=== PATIENT | female | born 1995 | race Hispanic/Latino ===

== ENCOUNTER 2018-06-18 07:03 | Emergency (ER) | payer BC ==
--- OUTSIDE RECORDS SUMMARY | 2018-06-18 07:06 | XMS REPORT ---
:1995 [facility] Address [address] [place] [address] Dr. Perez [address] [place] [id number] Care Team Providers Name Role Phone Unavailable Unavailable Unavailable Problems This patient has no known problems. Allergies, Adverse Reactions, Alerts This patient has no known allergies or adverse reactions. Medications This patient has no known medications.
[2018-06-18] MEDS ORDERED: CODEINE 30MG/APAP 300MG TAB ONE (07:49)
--- NOTE | 2018-06-18 08:34 | RAD REPORT ---
EXAM DESCRIPTION: RAD - Foot Right 3 View - 06/18/2018 7:33 am CLINICAL HISTORY: PAIN COMPARISON: No comparisons FINDINGS: No fracture or dislocation is seen. Small calcaneal spurs.
--- NOTE | 2018-06-18 08:41 | ER ---
Nurse's Notes [facility] Name: Catherine Carlos Age: 23 yrs Sex: Female : 1995 Arrival Date: 06/18/2018 Time: 07:06 Bed 7 Private MD: out of town, doctor Diagnosis: Other sprain of right foot Presentation: 06/18 07:19 Presenting complaint: Patient states: Complains of right foot pain. 10/10 pain, does pc1 not radiate to any other location. Aggravated by dorsi flexion and extension, circumduction of the right foot. Dorsals pedis pulses 2+. Stated that she did not recall and recent injuries that would have caused her pain, denies falling. Stated that her pain began on the and progressively has gotten worse. Transition of care: patient was not received from another setting of care. Onset of symptoms was June 16, 2018. Risk Assessment: Do you want to hurt yourself or someone else? Patient reports no desire to harm self or others. Initial Sepsis Screen: Does the patient meet any 2 criteria? No. Patient's initial sepsis screen is negative. Does the patient have a suspected source of infection? No. Patient's initial sepsis screen is negative. Care prior to arrival: None. Activity prior to arrival: None. Mechanism of Injury: No Mechanism of Injury. 07:19 Method Of Arrival: Ambulatory pc1 07:19 Acuity: DIANELYS 4 pc1 Triage Assessment: 07:31 General: Appears in no apparent distress. uncomfortable, Behavior is calm, cooperative. pc1 Pain: Complains of pain in right foot Pain does not radiate. Pain currently is 10 out of 10 on a pain scale. Quality of pain is described as tender, Pain began 2-3 days ago. Is Aggravated by increased activity, weight bearing, Noted to be. Musculoskeletal: Tenderness is absent. Injury Description: Pt stated "Did not actively injury foot". 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 - Social history:: Smoking status: Patient/guardian denies using tobacco, never smoked, Patient/guardian denies using alcohol, street drugs. - Ebola Screening: : Patient negative for fever greater than or equal to 101.5 degrees Fahrenheit, and additional compatible Ebola Virus Disease symptoms Patient denies exposure to infectious person Patient denies travel to an Ebola-affected area in the 21 days before illness onset No symptoms or risks identified at this time. Screenin:38 Abuse screen: Denies threats or abuse. Denies injuries from another. Nutritional pc1 screening: No deficits noted. Tuberculosis screening: No symptoms or risk factors identified. Fall Risk None identified. Gait-. Assessment: 07:41 General: See triage tab. pc1 08:48 Reassessment: Patient and/or family updated on plan of care and expected duration. Pain hj level reassessed. Patient is alert, oriented x 3, equal unlabored respirations, skin warm/dry/pink. crutch training done;. Vital Signs: 07:27 BP 125 / 88; Pulse 79; Resp 17; Temp 98.2; Pulse Ox 97% on R/A; pc1 08:47 BP 111 / 56; Pulse 75; Resp 18; Pulse Ox 100% on R/A; hj ED Course: 07:06 Patient arrived in ED. mr 07:07 out of town, doctor is Private Physician. mr 07:14 González Raines, ZION is PHCP. pm1 07:14 Eran Lacey MD is Attending Physician. pm1 07:15 Obdulio Pope, CODY is Primary Nurse. hj 07:26 X-ray completed. Portable x-ray completed in exam room. Patient tolerated procedure jb2 well. 07:27 Triage completed. pc1 07:31 Foot Right 3 View XRAY In Process Unspecified. EDMS 07:35 Arm band placed on right wrist. pc1 07:39 Patient has correct armband on for positive identification. Bed in low position. Call pc1 light in reach. Adult w/ patient. 09:24 No provider procedures requiring assistance completed. Patient did not have IV access hj during this emergency room visit. Administered Medications: 07:36 Drug: Tylenol #3 (300 mg-30 mg) 1 tablet Route: PO; hj 08:36 Follow up: Response: No adverse reaction; Pain is decreased hj Outcome: 08:41 Discharge ordered by . pm1 09:24 Discharged to home ambulatory, with crutches, with family. hj 09:24 Condition: stable 09:24 Discharge instructions given to patient, family, Instructed on discharge instructions, follow up and referral plans. medication usage, crutch walking, Demonstrated understanding of instructions, follow-up care, medications, crutch walking, Prescriptions given X 1. 09:25 Attestation : i agree with assessment and notes of SN Daniel. 09:26 Patient left the ED. Signatures: Dispatcher [employer] EDTN Patricia Silva mr Childs, Jan jb2 Obdulio Pope, RN RN González Mims, EARTHMOVING LABOURER EARTHMOVING LABOURER pm1 González Roblero pc1
--- NOTE | 2018-06-18 08:41 | EDPHYS ---
Physician Documentation [facility] Name: Catherine Carlos Age: 23 yrs Sex: Female : 1995 Arrival Date: 06/18/2018 Time: 07:06 Bed 7 Private MD: out of town, doctor ED Physician Eran Lacey HPI: 06/18 07:37 This 23 yrs old Female presents to ER via Ambulatory with complaints of Right pm1 Foot Pain. 07:37 The patient presents with pain, that is acute. The complaints affect the Lateral aspect pm1 of dorsum of right foot. Context: The problem was sustained at home, resulted from an unknown cause, the patient can partially bear weight, the patient is able to ambulate, with mild difficulty, Problem is a result from a previous injury: No. Onset: The symptoms/episode began/occurred 2 day(s) ago. Modifying factors: The symptoms are alleviated by rest. the symptoms are aggravated by weight bearing, plantar extension and dorsiflexion. Associated signs and symptoms: Pertinent negatives calf tenderness, fever, numbness, rash, swelling, tingling, warmth. Treatment prior to arrival includes: no previous treatment. Severity of symptoms: in the emergency department the symptoms are unchanged. The patient has not experienced similar symptoms in the past. The patient has not recently seen a physician. 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 - Social history:: Smoking status: Patient/guardian denies using tobacco, never smoked, Patient/guardian denies using alcohol, street drugs. - Ebola Screening: : Patient negative for fever greater than or equal to 101.5 degrees Fahrenheit, and additional compatible Ebola Virus Disease symptoms Patient denies exposure to infectious person Patient denies travel to an Ebola-affected area in the 21 days before illness onset No symptoms or risks identified at this time. ROS: 07:37 Constitutional: Negative for fever, chills, and weight loss, Eyes: Negative for injury, pm1 pain, redness, and discharge, ENT: Negative for injury, pain, and discharge, Neck: Negative for injury, pain, and swelling, Cardiovascular: Negative for chest pain, palpitations, and edema, Respiratory: Negative for shortness of breath, cough, wheezing, and pleuritic chest pain, Abdomen/GI: Negative for abdominal pain, nausea, vomiting, diarrhea, and constipation, Back: Negative for injury and pain, : Negative for injury, bleeding, discharge, and swelling. 07:37 Skin: Negative for injury, rash, and discoloration, Neuro: Negative for headache, weakness, numbness, tingling, and seizure. 07:37 MS/extremity: Positive for pain, of the right foot, Negative for injury or acute deformity, deformity, swelling. Exam: 07:37 Constitutional: This is a well developed, well nourished patient who is awake, alert, pm1 and in no acute distress. Head/Face: Normocephalic, atraumatic. Neck: Trachea midline, no thyromegaly or masses palpated, and no cervical lymphadenopathy. Supple, full range of motion without nuchal rigidity, or vertebral point tenderness. No Meningismus. Chest/axilla: Normal chest wall appearance and motion. Nontender with no deformity. No lesions are appreciated. Cardiovascular: Regular rate and rhythm with a normal S1 and S2. No gallops, murmurs, or rubs. Normal PMI, no JVD. No pulse deficits. Respiratory: Lungs have equal breath sounds bilaterally, clear to auscultation and percussion. No rales, rhonchi or wheezes noted. No increased work of breathing, no retractions or nasal flaring. Back: No spinal tenderness. No costovertebral tenderness. Full range of motion. Skin: Warm, dry with normal turgor. Normal color with no rashes, no lesions, and no evidence of cellulitis. 07:37 Musculoskeletal/extremity: Extremities: grossly normal except: noted in the dorsum of right foot, lateral aspect over 4th metatarsal: tenderness, There is no evidence of decreased ROM, deformity, swelling, Circulation is intact in all extremities. 07:37 Neuro: Orientation: is normal, Motor: is normal, moves all fours. Vital Signs: 07:27 BP 125 / 88; Pulse 79; Resp 17; Temp 98.2; Pulse Ox 97% on R/A; pc1 08:47 BP 111 / 56; Pulse 75; Resp 18; Pulse Ox 100% on R/A; hj MDM: 07:14 Patient medically screened. pm1 07:41 Data reviewed: vital signs. Data interpreted: Pulse oximetry: on room air is 97 %. pm1 Interpretation: normal. 08:38 Counseling: I had a detailed discussion with the patient and/or guardian regarding: the pm1 historical points, exam findings, and any diagnostic results supporting the discharge/admit diagnosis, radiology results, the need for outpatient follow up, to return to the emergency department if symptoms worsen or persist or if there are any questions or concerns that arise at home. 06/18 07:17 Order name: Foot Right 3 View XRAY; Complete Time: 08:38 pm1 06/18 08:41 Order name: Crutches; Complete Time: 08:42 pm1 Administered Medications: 07:36 Drug: Tylenol #3 (300 mg-30 mg) 1 tablet Route: PO; 08:36 Follow up: Response: No adverse reaction; Pain is decreased Disposition: 06/19 07:05 Co-signature as Attending Physician, Eran Lacey MD. rn Disposition: 06/18/18 08:41 Discharged to Home. Impression: Other sprain of right foot. - Condition is Stable. - Discharge Instructions: Crutch Use, Foot Sprain. - Prescriptions for Tylenol- Codeine #3 300-30 mg Oral Tablet - take 2 tablets by ORAL route every 6 hours As needed; 20 tablet. - Medication Reconciliation Form, Thank You Letter, Prescription Opioid Use, Family Work Release form. - Follow up: Emergency Department; When: As needed; Reason: Worsening of condition. Follow up: Private Physician; When: 2 - 3 days; Reason: Recheck today's complaints, Continuance of care, Re-evaluation by your physician. - Problem is new. - Symptoms have improved. Signatures: Dispatcher [employer] EDMS Eran Lacey MD MD rn Joaquin, Henry, RN RN hj Marinas, Patrick, ZION CHECK PROCESSOR pm1 González Roblero pc1 Corrections: (The following items were deleted from the chart) 06/18 09:26 08:41 06/18/2018 08:41 Discharged to Home. Impression: Other sprain of right foot. hj Condition is Stable. Forms are Medication Reconciliation Form, Thank You Letter, Antibiotic Education, Prescription Opioid Use. Follow up: Emergency Department; When: As needed; Reason: Worsening of condition. Follow up: Private Physician; When: 2 - 3 days; Reason: Recheck today's complaints, Continuance of care, Re-evaluation by your physician. Problem is new. Symptoms have improved. pm1
== END 2018-06-18 09:26 | disposition home or self-care (01) ==
LOC: ER 07:03
DX: S93.691A Other sprain of right foot, initial encounter (principal); X58.XXXA Exposure to other specified factors, initial encounter; Y93.9 Activity, unspecified; Y92.009 Unspecified place in unspecified non-institutional (private) residence as the place of occurrence of the external cause

== ENCOUNTER 2019-04-28 16:51 | Emergency (ER) | payer BC, OTHER ==
--- OUTSIDE RECORDS SUMMARY | 2019-04-28 16:53 | XMS REPORT ---
:1995 [facility] Address [address] [place] [address] Dr. Garcia[address] [place] [id number] Care Team Providers Name Role Phone Unavailable Unavailable Unavailable Problems This patient has no known problems. Allergies, Adverse Reactions, Alerts This patient has no known allergies or adverse reactions. Medications This patient has no known medications.
[2019-04-28] MEDS ORDERED: ONDANSETRON 4 MG (ODT) TAB ONE (18:02)
[2019-04-28] MEDS ORDERED: ACETAMINOPHEN 500 MG TAB ONE (18:02)
[2019-04-28 18:31] LABS: Urine Blood TRACE (NEG); Urine Glucose NEGATIVE (NEG); Urine Protein NEGATIVE (NEG); Urine Specific Gravity 1.025 (1.005-1.030)
[2019-04-28] MEDS ORDERED: NA CHLORIDE 0.9% 1,000 ML ONE (18:50)
[2019-04-28 18:59] LABS: Absolute Lymphocytes (CBC) 1.9 K/uL (0.7-4.9); Basophils % 0.7 % (0-1.3); Hematocrit 41.5 % (36.0-45.0); Lymphocytes % 31.3 % (15.3-44.8); MPV 9.7 fL (7.6-11.3); RBC Red Blood Cell Count 5.04 M/uL (3.86-4.86)
[2019-04-28 19:20] LABS: ALT/SGPT 33 U/L (12-78); AST/SGOT 13 U/L (15-37); Alkaline Phosphatase 44 U/L (45-117); BUN Blood Urea Nitrogen 14 mg/dL (7-18); Bicarbonate 26 mmol/L (21-32); Bilirubin Direct < 0.1 mg/dL (0-0.2); Bilirubin Total 0.3 mg/dL (0.2-1.0); Glucose Level 90 mg/dL (74-106); Lipase 88 U/L (73-393); Potassium 4.2 mmol/L (3.5-5.1); Protein, Total 7.2 g/dL (6.4-8.2); Sodium Level 139 mmol/L (136-145)
--- NOTE | 2019-04-28 19:49 | EDPHYS ---
Physician Documentation [facility] Name: Catherine Carlos Age: 23 yrs Sex: Female : 1995 Arrival Date: 04/28/2019 Time: 16:57 Bed 23 Private MD: ED Physician Chase Howell HPI: 04/28 18:00 This 23 yrs old Female presents to ER via Ambulatory with complaints of cp Vomiting, Dizziness, Fever, Sore Throat. 18:00 The patient presents to the emergency department with nausea, that is mild, vomiting, cp that is intermittent, 3 times since last night. 18:00 Onset: The symptoms/episode began/occurred last night. Possible causes: unknown. The cp symptoms are aggravated by movement. Associated signs and symptoms: Pertinent positives: fever, headache, sore throat, dizziness, Pertinent negatives: constipation, diarrhea, active vomiting. 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 - Social history:: Smoking status: Patient uses tobacco products, denies chronic smoking, but will smoke occasionally. - Ebola Screening: : Patient negative for fever greater than or equal to 101.5 degrees Fahrenheit, and additional compatible Ebola Virus Disease symptoms Patient denies exposure to infectious person Patient denies travel to an Ebola-affected area in the 21 days before illness onset No symptoms or risks identified at this time. ROS: 18:10 Eyes: Negative for injury, pain, redness, and discharge. cp 18:10 Constitutional: Negative for body aches, fever, poor PO intake. 18:10 ENT: Positive for sore throat, Negative for drainage from ear(s), ear pain, sinus congestion, sinus pain, difficulty swallowing, difficulty handling secretions. 18:10 Neck: Negative for stiffness. 18:10 Cardiovascular: Negative for chest pain, edema, palpitations. 18:10 Respiratory: Negative for cough, shortness of breath, wheezing. 18:10 Abdomen/GI: Positive for nausea, Negative for diarrhea, constipation, active vomiting. 18:10 Back: Negative for pain at rest, pain with movement, radiated pain. 18:10 : Negative for urinary symptoms. 18:10 Skin: Negative for rash. 18:10 Neuro: Positive for dizziness, headache, Negative for altered mental status, numbness, syncope, weakness. 18:10 All other systems are negative. Exam: 18:15 Constitutional: The patient appears in no acute distress, alert, awake, non-toxic, well cp developed, well nourished. 18:15 Head/Face: Normocephalic, atraumatic. cp 18:15 Eyes: Periorbital structures: appear normal, Pupils: equal, round, and reactive to light and accomodation, Extraocular movements: intact throughout, Conjunctiva: normal, no exudate, no injection, Sclera: no appreciated abnormality, Lids and lashes: appear normal, bilaterally. 18:15 ENT: External ear(s): are unremarkable, Ear canal(s): are normal, clear, TM's: bulging, is not appreciated, bilaterally, dullness, bilaterally, erythema, is not appreciated, bilaterally, Nose: is normal, Mouth: Lips: moist, Oral mucosa: pink and intact, moist, Posterior pharynx: is normal, airway is patent, no erythema, no exudate, Voice: is normal. 18:15 Neck: ROM/movement: Meningeal signs: are not present, nuchal rigidity, is not appreciated. 18:15 Chest/axilla: Inspection: normal, Palpation: is normal, no crepitus, no tenderness. 18:15 Cardiovascular: Rate: normal, Rhythm: regular, Heart sounds: murmur, not appreciated, Edema: is not appreciated. 18:15 Respiratory: the patient does not display signs of respiratory distress, Respirations: normal, no use of accessory muscles, no retractions, no splinting, no tachypnea, labored breathing, is not present, Breath sounds: are clear throughout, no decreased breath sounds, no stridor, no wheezing. 18:15 Abdomen/GI: Inspection: abdomen appears normal, Bowel sounds: active, all quadrants, Palpation: abdomen is soft and non-tender, in all quadrants. 18:15 Back: pain, is absent, ROM is normal. 18:15 Skin: no rash present. 18:15 Neuro: Orientation: to person, place \T\ time. Mentation: is normal, Cerebellar function: is grossly normal, Motor: moves all fours, strength is normal, Sensation: is normal, Gait: is steady, at a normal pace, without difficulty. Vital Signs: 17:11 BP 140 / 77; Pulse 97; Resp 17 S; Temp 98.6(O); Pulse Ox 98% on R/A; Weight 97.52 kg ca1 (R); Height 5 ft. 4 in. (162.56 cm) (R); Pain 4/10; 18:11 BP 118 / 77 Supine; Pulse 73; lt1 18:11 BP 117 / 69 Sitting; Pulse 83; lt1 18:11 BP 115 / 78 Standing; Pulse 95; lt1 19:00 BP 110 / 62; Pulse 84; Resp 18; Pulse Ox 100% on R/A; mg2 20:04 BP 111 / 78; Pulse 85; Resp 18; Temp 98; Pulse Ox 100% on R/A; mg2 17:11 Body Mass Index 36.90 (97.52 kg, 162.56 cm) ca1 MDM: 17:42 Patient medically screened. cp 18:00 Differential diagnosis: gastritis, gastroenteritis, dehydration, migraine, strep cp throat, electrolyte abnormality, influenza. 19:47 Data reviewed: vital signs, nurses notes, lab test result(s). cp 19:47 Counseling: I had a detailed discussion with the patient and/or guardian regarding: the cp historical points, exam findings, and any diagnostic results supporting the discharge/admit diagnosis, lab results, to return to the emergency department if symptoms worsen or persist or if there are any questions or concerns that arise at home. Response to treatment: the patient's symptoms have markedly improved after treatment, patient is well hydrated. VSS. Patient reports symptoms improved. Will discharge to home for continued monitoring. 04/28 17:13 Order name: Flu; Complete Time: 18:35 ca1 04/28 17:13 Order name: Strep; Complete Time: 18:35 ca1 04/28 19:02 Interpretation: Reviewed. cp 04/28 17:56 Order name: Throat Culture EDMS 04/28 18:13 Order name: Urine Dipstick--Ancillary (enter results); Complete Time: 18:35 ms 04/28 19:23 Interpretation: Normal except: UBLD TRACE. cp 04/28 18:13 Order name: Urine --Ancillary (enter results); Complete Time: 18:35 ms 04/28 18:35 Order name: Basic Metabolic Panel; Complete Time: 19:22 cp 04/28 19:22 Interpretation: Normal except: CL 109. cp 04/28 17:48 Order name: Orthostatics; Complete Time: 18:12 cp 04/28 18:35 Order name: CBC with Diff; Complete Time: 19:02 cp 04/28 19:02 Interpretation: Normal except: RBC 5.04; MCV 82.3; MCH 27.3. cp 04/28 18:35 Order name: Creatinine for Radiology; Complete Time: 19:22 cp 04/28 18:35 Order name: Hepatic Function; Complete Time: 19:22 cp 04/28 19:23 Interpretation: Normal except: AST 13; ALK 44. cp 04/28 18:35 Order name: Lipase; Complete Time: 19:22 cp 04/28 17:48 Order name: Urine Dipstick-Ancillary (obtain specimen); Complete Time: 18:12 cp 04/28 17:48 Order name: Urine Test (obtain specimen); Complete Time: 18:12 cp 04/28 18:35 Order name: IV Saline Lock; Complete Time: 18:53 cp 04/28 18:35 Order name: Labs collected and sent; Complete Time: 18:53 cp Administered Medications: 18:15 Drug: Tylenol 1000 mg Route: PO; mg2 19:58 Follow up: Response: No adverse reaction; Pain is decreased ca1 18:15 Drug: Zofran 4 mg Route: PO; mg2 19:58 Follow up: Response: No adverse reaction; Nausea is decreased ca1 18:53 Drug: NS 0.9% 1000 ml Route: IV; Rate: 1 bolus; Site: right antecubital; mg2 19:58 Follow up: Response: No adverse reaction; IV Status: Completed infusion ca1 Disposition: 04/28/19 19:48 Discharged to Home. Impression: Dizziness and giddiness, Nausea and vomiting, Acute pharyngitis. - Condition is Stable. - Discharge Instructions: Dizziness, Nausea and Vomiting, Adult, Sore Throat. - Prescriptions for Zofran 4 mg Oral Tablet - take 1 tablet by ORAL route every 12 hours As needed; 20 tablet. - Medication Reconciliation Form, Thank You Letter, Antibiotic Education, Prescription Opioid Use, Work release form form. - Follow up: Private Physician; When: 2 - 3 days; Reason: Worsening of condition. - Problem is new. - Symptoms have improved. Addendum: 04/30/2019 06:56 Co-signature as Attending Physician, Chase Howell MD I agree with the assessment and c hirsch plan of care. Signatures: Dispatcher [employer] EDUT Chase Howell MD MD cha Page, Corey, PA RUBENS cp Jake Rogers RN RN mg2 Acacia Leblanc RN RN ca1 Corrections: (The following items were deleted from the chart) 04/28 20:05 19:48 04/28/2019 19:48 Discharged to Home. Impression: Dizziness and giddiness; Nausea ca1 and vomiting; Acute pharyngitis. Condition is Stable. Forms are Medication Reconciliation Form, Thank You Letter, Antibiotic Education, Prescription Opioid Use. Follow up: Private Physician; When: 2 - 3 days; Reason: Worsening of condition. Problem is new. Symptoms have improved. cp
--- NOTE | 2019-04-28 19:49 | ER ---
Nurse's Notes [facility] Name: Catherine Carlos Age: 23 yrs Sex: Female : 1995 Arrival Date: 04/28/2019 Time: 16:57 Bed 23 Private MD: Diagnosis: Dizziness and giddiness;Nausea and vomiting;Acute pharyngitis Presentation: 04/28 17:06 Presenting complaint: Patient states: "This morning on my way to work I got real dizzy ca1 and I vomited, I also have fever since last night at 100.3F. My throat is sore and my daughter was diagnosed of the strep last week" Denies cough and congestion. Transition of care: patient was not received from another setting of care. Onset of symptoms was April 28, 2019. Risk Assessment: Do you want to hurt yourself or someone else? Patient reports no desire to harm self or others. Initial Sepsis Screen: Does the patient meet any 2 criteria? No. Patient's initial sepsis screen is negative. Does the patient have a suspected source of infection? No. Patient's initial sepsis screen is negative. Care prior to arrival: None. 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 - Social history:: Smoking status: Patient uses tobacco products, denies chronic smoking, but will smoke occasionally. - Ebola Screening: : Patient negative for fever greater than or equal to 101.5 degrees Fahrenheit, and additional compatible Ebola Virus Disease symptoms Patient denies exposure to infectious person Patient denies travel to an Ebola-affected area in the 21 days before illness onset No symptoms or risks identified at this time. Screenin:24 Abuse screen: Denies threats or abuse. Denies injuries from another. Nutritional mg2 screening: No deficits noted. Tuberculosis screening: No symptoms or risk factors identified. Fall Risk IV access (20 points). Assessment: 18:00 General: Appears in no apparent distress. comfortable, Behavior is calm, cooperative. mg2 Pain: Complains of pain in throat, head and abdomen. Neuro: Level of Consciousness is awake, alert, obeys commands, Oriented to person, place, time, situation, Reports dizziness, headache. Cardiovascular: Capillary refill < 3 seconds Patient's skin is warm and dry. Respiratory: Airway is patent Respiratory effort is even, unlabored, Respiratory pattern is regular, symmetrical. GI: Abdomen is non-distended, Reports nausea. : No signs and/or symptoms were reported regarding the genitourinary system. EENT: Reports sore throat. Derm: Skin is intact, is healthy with good turgor, Skin is pink, warm \\T\\ dry. normal. Musculoskeletal: Circulation, motion, and sensation intact. Capillary refill < 3 seconds. 19:30 Reassessment: Patient appears in no apparent distress at this time. Patient and/or mg2 family updated on plan of care and expected duration. Pain level reassessed. Patient is alert, oriented x 3, equal unlabored respirations, skin warm/dry/pink. Vital Signs: 17:11 BP 140 / 77; Pulse 97; Resp 17 S; Temp 98.6(O); Pulse Ox 98% on R/A; Weight 97.52 kg ca1 (R); Height 5 ft. 4 in. (162.56 cm) (R); Pain 4/10; 18:11 BP 118 / 77 Supine; Pulse 73; lt1 18:11 BP 117 / 69 Sitting; Pulse 83; lt1 18:11 BP 115 / 78 Standing; Pulse 95; lt1 19:00 BP 110 / 62; Pulse 84; Resp 18; Pulse Ox 100% on R/A; mg2 20:04 BP 111 / 78; Pulse 85; Resp 18; Temp 98; Pulse Ox 100% on R/A; mg2 17:11 Body Mass Index 36.90 (97.52 kg, 162.56 cm) ca1 ED Course: 16:57 Patient arrived in ED. mr 17:10 Triage completed. ca1 17:11 Arm band placed on right wrist. ca1 17:42 Chase Torres PA is PHCP. cp 17:42 Chase Howell MD is Attending Physician. cp 17:55 Jake Rogers RN is Primary Nurse. mg2 19:00 Inserted saline lock: 22 gauge in right antecubital area, using aseptic technique. mg2 Blood collected. 19:25 Patient has correct armband on for positive identification. mg2 19:25 No provider procedures requiring assistance completed. mg2 20:05 IV discontinued, intact, bleeding controlled, No redness/swelling at site. Pressure ca1 dressing applied. Administered Medications: 18:15 Drug: Tylenol 1000 mg Route: PO; mg2 19:58 Follow up: Response: No adverse reaction; Pain is decreased ca1 18:15 Drug: Zofran 4 mg Route: PO; mg2 19:58 Follow up: Response: No adverse reaction; Nausea is decreased ca1 18:53 Drug: NS 0.9% 1000 ml Route: IV; Rate: 1 bolus; Site: right antecubital; mg2 19:58 Follow up: Response: No adverse reaction; IV Status: Completed infusion ca1 Outcome: 19:48 Discharge ordered by MD. cp 20:05 Discharged to home ambulatory. ca1 20:05 Condition: stable 20:05 Discharge instructions given to patient, Instructed on discharge instructions, follow up and referral plans. medication usage, Demonstrated understanding of instructions, follow-up care, medications, Prescriptions given X 1. 20:05 Patient left the ED. ca1 Signatures: Patricia Silva Corey, PA PA cp Gardose, Michele, RN RN mg2 Acacia Leblanc RN RN ca1 Zena Villalobos lt1
[2019-04-28 20:18] VITALS: O2SAT 100
[2019-04-28 20:19] VITALS: BP 111/78; TEMP 98
== END 2019-04-28 20:05 | disposition home or self-care (01) ==
LOC: ER 16:51
DX: R11.2 Nausea with vomiting, unspecified (principal); J02.9 Acute pharyngitis, unspecified; Z72.0 Tobacco use
CPT/HCPCS: 87070; 85025; 80048; 36415; 81025; 80076; 87081; 81003; 83690; 87804 ×2; 96360; 99284; J7030

== ENCOUNTER 2019-05-14 10:07 | Emergency (ER) | payer OTHER ==
--- OUTSIDE RECORDS SUMMARY | 2019-05-14 10:11 | XMS REPORT ---
:1995 [facility] Address [address] [place] [address] Dr. Garcia. [address] [place] [id number] Care Team Providers Name Role Phone Unavailable Unavailable Unavailable Problems This patient has no known problems. Allergies, Adverse Reactions, Alerts This patient has no known allergies or adverse reactions. Medications This patient has no known medications.
[2019-05-14 11:34] LABS: Urine Blood NEGATIVE (NEG); Urine Glucose NEGATIVE (NEG); Urine Protein NEGATIVE (NEG); Urine Specific Gravity >1.030 (1.005-1.030)
[2019-05-14] MEDS ORDERED: ONDANSETRON 4 MG (ODT) TAB ONE (11:40)
--- NOTE | 2019-05-14 12:57 | ER ---
Nurse's Notes [facility] Name: Catherine Carlos Age: 23 yrs Sex: Female : 1995 Arrival Date: 05/14/2019 Time: 10:10 Bed 19 Private MD: Diagnosis: Nausea and vomiting;Diarrhea, unspecified Presentation: 05/14 10:28 Presenting complaint: Patient states: vomiting started last night after dinner, went to work this morning and started feeling dizzy. Reports that her daughter was dx with the flu a couple of days ago. Pt noted to be eating in the lobby. c/o upper abd pain and cramping. Transition of care: patient was not received from another setting of care. Onset of symptoms was May 13, 2019. Care prior to arrival: None. 10:28 Method Of Arrival: Ambulatory 10:28 Acuity: DIANELYS 3 15:16 Risk Assessment: Do you want to hurt yourself or someone else? Patient reports no ss desire to harm self or others. Initial Sepsis Screen: Does the patient meet any 2 criteria? No. Patient's initial sepsis screen is negative. Does the patient have a suspected source of infection? No. Patient's initial sepsis screen is negative. Historical: - Allergies: 10:29 No Known Allergies; sv - PSHx: 10:29 ; Appendectomy; sv - Immunization history:: Adult Immunizations up to date. - Social history:: Smoking status: Patient denies any tobacco usage or history of. - Ebola Screening: : Patient denies exposure to infectious person Patient denies travel to an Ebola-affected area in the 21 days before illness onset. Screenin:15 Abuse screen: Denies threats or abuse. Denies injuries from another. Nutritional ss screening: No deficits noted. Tuberculosis screening: Never had TB. Fall Risk None identified. Assessment: 11:15 General: Appears in no apparent distress. comfortable, Behavior is calm, cooperative, ss Reports feeling ill for 12-24 hours, Denies fever. Pain: Complains of pain in abdomen Pain currently is 7 out of 10 on a pain scale. Quality of pain is described as aching. Neuro: Level of Consciousness is awake, alert, obeys commands, Oriented to person, place, time, situation. Respiratory: Respiratory effort is even, unlabored, Denies cough, shortness of breath. GI: Abdomen is non-distended, Reports diarrhea, nausea, vomiting. : No signs and/or symptoms were reported regarding the genitourinary system. Derm: Skin is intact, is healthy with good turgor, Skin is dry, Skin is pink, warm \T\ dry. normal. Musculoskeletal: Circulation, motion, and sensation intact. Range of motion: intact in all extremities, Swelling absent. 13:10 Reassessment: Patient appears in no apparent distress at this time. Patient and/or ss family updated on plan of care and expected duration. Pain level reassessed. Patient is alert, oriented x 3, equal unlabored respirations, skin warm/dry/pink. Vital Signs: 10:29 BP 115 / 80; Pulse 76; Resp 16; Temp 97.9; Pulse Ox 100% ; Weight 97.52 kg; Height 5 sv ft. 4 in. (162.56 cm); Pain 7/10; 10:29 Body Mass Index 36.90 (97.52 kg, 162.56 cm) sv ED Course: 10:10 Patient arrived in ED. ag5 10:29 Triage completed. sv 10:29 Arm band placed on. sv 10:34 Joy George FNP-C is [facility]. kb 10:34 Eran Lacey MD is Attending Physician. kb 11:15 Patient has correct armband on for positive identification. Bed in low position. Call ss light in reach. 11:35 Devi Metz, CODY is Primary Nurse. ss 13:09 No provider procedures requiring assistance completed. Patient did not have IV access ss during this emergency room visit. Administered Medications: 11:38 Drug: Zofran 4 mg Route: PO; ss 13:11 Follow up: Response: No adverse reaction; Nausea is decreased ss Outcome: 12:57 Discharge ordered by . kb 13:09 Discharged to home ambulatory, with friend. ss 13:09 Condition: good 13:09 Discharge instructions given to patient, family, Instructed on discharge instructions, follow up and referral plans. medication usage, Demonstrated understanding of instructions, follow-up care, medications, Prescriptions given X 1. 13:11 Patient left the ED. ss Signatures: Joy George FNP-C FNP-Ckb Verde, Stephanie, RN RN Devi Metz RN RN Keiko Fuchs ag5 Corrections: (The following items were deleted from the chart) 10:30 10:28 Presenting complaint: Patient states: vomiting started last night after dinner, sv went to work this morning and started feeling dizzy. Reports that her daughter was dx with the flu a couple of days ago. Pt noted to be eating in the lobby. sv
--- NOTE | 2019-05-14 12:57 | EDPHYS ---
Physician Documentation [facility] Name: Catherine Carlos Age: 23 yrs Sex: Female : 1995 Arrival Date: 05/14/2019 Time: 10:10 Bed 19 Private MD: ED Physician Eran Lacey HPI: 05/14 13:21 This 23 yrs old Female presents to ER via Ambulatory with complaints of kb Vomiting, Dizziness. 13:21 The patient presents to the emergency department with nausea, vomiting, diarrhea. kb Onset: The symptoms/episode began/occurred yesterday. Possible causes: unknown. The symptoms are aggravated by nothing. The symptoms are alleviated by nothing. Associated signs and symptoms: Pertinent positives: diarrhea, fever, nausea, vomiting. Severity of symptoms: At their worst the symptoms were moderate in the emergency department the symptoms are unchanged. The patient has not experienced similar symptoms in the past. Historical: - Allergies: 10:29 No Known Allergies; sv - PSHx: 10:29 ; Appendectomy; sv - Immunization history:: Adult Immunizations up to date. - Social history:: Smoking status: Patient denies any tobacco usage or history of. - Ebola Screening: : Patient denies exposure to infectious person Patient denies travel to an Ebola-affected area in the 21 days before illness onset. ROS: 13:20 ENT: Negative for injury, pain, and discharge, Neck: Negative for injury, pain, and kb swelling, Cardiovascular: Negative for chest pain, palpitations, and edema, Respiratory: Negative for shortness of breath, cough, wheezing, and pleuritic chest pain, Back: Negative for injury and pain, MS/Extremity: Negative for injury and deformity, Skin: Negative for injury, rash, and discoloration, Neuro: Negative for headache, weakness, numbness, tingling, and seizure. 13:20 Constitutional: Positive for body aches, chills, fatigue, fever, malaise. 13:20 Abdomen/GI: Positive for nausea, vomiting, and diarrhea. Exam: 13:21 Constitutional: This is a well developed, well nourished patient who is awake, alert, kb and in no acute distress. Head/Face: Normocephalic, atraumatic. ENT: Nares patent. No nasal discharge, no septal abnormalities noted. Tympanic membranes are normal and external auditory canals are clear. Oropharynx with no redness, swelling, or masses, exudates, or evidence of obstruction, uvula midline. Mucous membranes moist. Neck: Trachea midline, no thyromegaly or masses palpated, and no cervical lymphadenopathy. Supple, full range of motion without nuchal rigidity, or vertebral point tenderness. No Meningismus. Chest/axilla: Normal chest wall appearance and motion. Nontender with no deformity. No lesions are appreciated. Cardiovascular: Regular rate and rhythm with a normal S1 and S2. No gallops, murmurs, or rubs. Normal PMI, no JVD. No pulse deficits. Respiratory: Lungs have equal breath sounds bilaterally, clear to auscultation and percussion. No rales, rhonchi or wheezes noted. No increased work of breathing, no retractions or nasal flaring. Abdomen/GI: Soft, non-tender, with normal bowel sounds. No distension or tympany. No guarding or rebound. No evidence of tenderness throughout. Skin: Warm, dry with normal turgor. Normal color with no rashes, no lesions, and no evidence of cellulitis. MS/ Extremity: Pulses equal, no cyanosis. Neurovascular intact. Full, normal range of motion. Neuro: Awake and alert, GCS 15, oriented to person, place, time, and situation. Cranial nerves II-XII grossly intact. Motor strength 5/5 in all extremities. Sensory grossly intact. Cerebellar exam normal. Normal gait. Vital Signs: 10:29 BP 115 / 80; Pulse 76; Resp 16; Temp 97.9; Pulse Ox 100% ; Weight 97.52 kg; Height 5 sv ft. 4 in. (162.56 cm); Pain 7/10; 10:29 Body Mass Index 36.90 (97.52 kg, 162.56 cm) sv MDM: 11:19 Patient medically screened. kb 13:19 Data reviewed: vital signs, nurses notes. Data interpreted: Pulse oximetry: on room air kb is 100 %. Interpretation: normal. Counseling: I had a detailed discussion with the patient and/or guardian regarding: the historical points, exam findings, and any diagnostic results supporting the discharge/admit diagnosis, lab results, the need for outpatient follow up, a family practitioner, to return to the emergency department if symptoms worsen or persist or if there are any questions or concerns that arise at home. 05/14 10:34 Order name: Flu; Complete Time: 12:56 kb 05/14 11:26 Order name: Strep; Complete Time: 11:55 kb 05/14 11:28 Order name: Urine Dipstick--Ancillary (enter results); Complete Time: 11:35 bd 05/14 11:28 Order name: Urine --Ancillary (enter results); Complete Time: 11:35 bd 05/14 11:57 Order name: Throat Culture EDAK 05/14 11:15 Order name: Urine Dipstick-Ancillary (obtain specimen); Complete Time: 11:15 sv 05/14 11:15 Order name: Urine Test (obtain specimen); Complete Time: 11:15 sv 05/14 11:56 Order name: PO challenge; Complete Time: 12:04 kb Administered Medications: 11:38 Drug: Zofran 4 mg Route: PO; ss 13:11 Follow up: Response: No adverse reaction; Nausea is decreased ss Disposition: 17:14 Co-signature as Attending Physician, Eran Lacey MD. rn Disposition: 05/14/19 12:57 Discharged to Home. Impression: Nausea and vomiting, Diarrhea, unspecified. - Condition is Stable. - Discharge Instructions: Food Choices to Help Relieve Diarrhea, Adult, Viral Gastroenteritis, Adult, [id number]. - Prescriptions for Zofran 4 mg Oral Tablet - take 1 tablet by ORAL route every 6 hours As needed; 20 tablet. - Medication Reconciliation Form, Thank You Letter, Antibiotic Education, Prescription Opioid Use, Work release form form. - Follow up: Emergency Department; When: As needed; Reason: Worsening of condition. Follow up: Private Physician; When: 2 - 3 days; Reason: Recheck today's complaints, Continuance of care, Re-evaluation by your physician. Signatures: Dispatcher [employer] EDJoy Dominguez, SHARI MARCOS-Raya Stack RN RN sv Nieto, Roman, MD MD rn Smirch, Shelby, RN RN ss Corrections: (The following items were deleted from the chart) 13:11 12:57 05/14/2019 12:57 Discharged to Home. Impression: Nausea and vomiting; Diarrhea, ss unspecified. Condition is Stable. Forms are Medication Reconciliation Form, Thank You Letter, Antibiotic Education, Prescription Opioid Use. Follow up: Emergency Department; When: As needed; Reason: Worsening of condition. Follow up: Private Physician; When: 2 - 3 days; Reason: Recheck today's complaints, Continuance of care, Re-evaluation by your physician. kb
[2019-05-14 17:11] VITALS: BP 115/80; TEMP 97.9; O2SAT 100
== END 2019-05-14 13:11 | disposition home or self-care (01) ==
LOC: ER 10:07
DX: R11.2 Nausea with vomiting, unspecified (principal); R19.7 Diarrhea, unspecified
CPT/HCPCS: 81003; 81025; 87070; 87081; 87804; 99283

== ENCOUNTER 2019-05-25 14:24 | Emergency (ER) | payer OTHER ==
--- OUTSIDE RECORDS SUMMARY | 2019-05-25 14:26 | XMS REPORT ---
:1995 [facility] Address [address] [place] [address] Dr. Garcia. [address] [place] [id number] Care Team Providers Name Role Phone Unavailable Unavailable Unavailable Problems This patient has no known problems. Allergies, Adverse Reactions, Alerts This patient has no known allergies or adverse reactions. Medications This patient has no known medications.
--- NOTE | 2019-05-25 15:42 | EDPHYS ---
Physician Documentation [facility] Name: Catherine Carlos Age: 23 yrs Sex: Female : 1995 Arrival Date: 05/25/2019 Time: 14:26 Bed 13 Private MD: ED Physician Chase Howell HPI: 05/25 15:09 This 23 yrs old Female presents to ER via Ambulatory with complaints of snw Headache, Nausea, Sore Throat. 15:09 The patient presents with sore throat. The patient describes throat pain as raw, snw scratchy. Onset: The symptoms/episode began/occurred suddenly, 2 day(s) ago, and became persistent. Severity of symptoms: At their worst the symptoms were moderate. Associated signs and symptoms: Pertinent positives: cough, fever, flu-like symptoms, Sore throat. It is unknown whether or not the patient has had similar symptoms in the past. The patient has not recently seen a physician. 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 - Coronavirus screen:: The patient has NOT traveled to [place], [place], or [place] in the past 14 days. The patient has NOT had contact with known/suspected case of Coronavirus? Proceed with normal triage procedures. - Social history:: Smoking status: Patient reports the use of cigarette tobacco products, denies chronic smoking, but will smoke occasionally. - Ebola Screening: : No symptoms or risks identified at this time. ROS: 15:07 Eyes: Negative for injury, pain, redness, and discharge. snw 15:07 Neck: Negative for injury, pain, and swelling, Cardiovascular: Negative for chest pain, palpitations, and edema. 15:07 Abdomen/GI: Negative for abdominal pain, nausea, vomiting, diarrhea, and constipation, Back: Negative for injury and pain, : Negative for injury, bleeding, discharge, and swelling, MS/Extremity: Negative for injury and deformity, Skin: Negative for injury, rash, and discoloration, Neuro: Negative for headache, weakness, numbness, tingling, and seizure, Psych: Negative for depression, anxiety, suicide ideation, homicidal ideation, and hallucinations. 15:07 Constitutional: Positive for body aches, fever, malaise, poor PO intake. 15:07 ENT: Positive for sore throat. 15:07 Respiratory: Positive for cough. Exam: 15:06 Head/Face: Normocephalic, atraumatic. Eyes: Pupils equal round and reactive to light, snw extra-ocular motions intact. Lids and lashes normal. Conjunctiva and sclera are non-icteric and not injected. Cornea within normal limits. Periorbital areas with no swelling, redness, or edema. 15:06 Neck: Trachea midline, no thyromegaly or masses palpated, and no cervical lymphadenopathy. Supple, full range of motion without nuchal rigidity, or vertebral point tenderness. No Meningismus. Chest/axilla: Normal chest wall appearance and motion. Nontender with no deformity. No lesions are appreciated. Cardiovascular: Regular rate and rhythm with a normal S1 and S2. No gallops, murmurs, or rubs. Normal PMI, no JVD. No pulse deficits. 15:06 Abdomen/GI: Soft, non-tender, with normal bowel sounds. No distension or tympany. No guarding or rebound. No evidence of tenderness throughout. Back: No spinal tenderness. No costovertebral tenderness. Full range of motion. Skin: Warm, dry with normal turgor. Normal color with no rashes, no lesions, and no evidence of cellulitis. MS/ Extremity: Pulses equal, no cyanosis. Neurovascular intact. Full, normal range of motion. Neuro: Awake and alert, GCS 15, oriented to person, place, time, and situation. Cranial nerves II-XII grossly intact. Motor strength 5/5 in all extremities. Sensory grossly intact. Cerebellar exam normal. Normal gait. Psych: Awake, alert, with orientation to person, place and time. Behavior, mood, and affect are within normal limits. 15:06 Constitutional: The patient appears alert, awake, non-toxic, uncomfortable. 15:06 ENT: TM's: erythema, that is mild, bilaterally, Nose: is normal, Mouth: is normal, Posterior pharynx: erythema, that is moderate, Voice: is normal. 15:06 Respiratory: the patient does not display signs of respiratory distress, Respirations: normal, Breath sounds: are clear throughout, occasional cough. Vital Signs: 14:40 BP 122 / 74; Pulse 71; Resp 16; Temp 97.6; Pulse Ox 100% on R/A; Weight 97.52 kg; hb Height 5 ft. 4 in. (162.56 cm); Pain 6/10; 14:40 Body Mass Index 36.90 (97.52 kg, 162.56 cm) hb MDM: 14:47 Patient medically screened. snw 15:43 Data reviewed: vital signs, nurses notes. Data interpreted: Pulse oximetry: on room air snw is 100 %. Interpretation: normal. Counseling: I had a detailed discussion with the patient and/or guardian regarding: the historical points, exam findings, and any diagnostic results supporting the discharge/admit diagnosis, lab results, the need for outpatient follow up, to return to the emergency department if symptoms worsen or persist or if there are any questions or concerns that arise at home. Special discussion: Based on the history and exam findings, there is no indication for further emergent testing or inpatient evaluation. I discussed with the patient/guardian the need to see the primary care provider for further evaluation of the symptoms. 05/25 14:48 Order name: Flu; Complete Time: 15:38 snw 05/25 14:48 Order name: Strep; Complete Time: 15:38 snw 05/25 15:35 Order name: Throat Culture EDMS Administered Medications: 16:15 Drug: Decadron 8 mg Route: PO; aj1 16:15 Follow up: Response: No adverse reaction aj1 16:15 Drug: ProTONIX 40 mg Route: PO; aj1 16:15 Follow up: Response: No adverse reaction aj1 Disposition: 05/25/19 15:41 Discharged to Home. Impression: Acute pharyngitis. - Condition is Stable. - Discharge Instructions: Fever, Adult, Pharyngitis, Rehydration, Adult. - Prescriptions for promethazine 25 mg Oral Tablet - take 1 tablet by ORAL route every 6 hours As needed; 20 tablet. - Work release form, Medication Reconciliation Form, Thank You Letter, Antibiotic Education, Prescription Opioid Use form. - Follow up: Emergency Department; When: As needed; Reason: Worsening of condition. Follow up: Private Physician; When: 2 - 3 days; Reason: Recheck today's complaints, Continuance of care, Re-evaluation by your physician. Addendum: 05/27/2019 07:27 Co-signature as Attending Physician, Chase Howell MD I agree with the assessment and c hirsch plan of care. Signatures: Dispatcher [employer] Libby Topete, RN RN aj1 Chase Howell MD MD cha Therrien, Shelly, SECURITY PROFESSIONAL-C SECURITY PROFESSIONAL-Csnw Elizabeth Owens RN RN Corrections: (The following items were deleted from the chart) 05/25 16:17 15:41 05/25/2019 15:41 Discharged to Home. Impression: Acute pharyngitis. Condition is aj1 Stable. Forms are Medication Reconciliation Form, Thank You Letter, Antibiotic Education, Prescription Opioid Use. Follow up: Emergency Department; When: As needed; Reason: Worsening of condition. Follow up: Private Physician; When: 2 - 3 days; Reason: Recheck today's complaints, Continuance of care, Re-evaluation by your physician. snw
--- NOTE | 2019-05-25 15:42 | ER ---
Nurse's Notes [facility] Name: Catherine Carlos Age: 23 yrs Sex: Female : 1995 Arrival Date: 05/25/2019 Time: 14:26 Bed 13 Private MD: Diagnosis: Acute pharyngitis Presentation: 05/25 14:38 Presenting complaint: Headache, nausea, dizziness, sore throat, and fever x 2 days. hb TMAX 100.1. Transition of care: patient was not received from another setting of care. Onset of symptoms was May 24, 2019. Risk Assessment: Do you want to hurt yourself or someone else? Patient reports no desire to harm self or others. Initial Sepsis Screen: Does the patient meet any 2 criteria? No. Patient's initial sepsis screen is negative. Does the patient have a suspected source of infection? No. Patient's initial sepsis screen is negative. Care prior to arrival: Medication(s) given: Tylenol, at 0600. 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 - Coronavirus screen:: The patient has NOT traveled to [place], [place], or [place] in the past 14 days. The patient has NOT had contact with known/suspected case of Coronavirus? Proceed with normal triage procedures. - Social history:: Smoking status: Patient reports the use of cigarette tobacco products, denies chronic smoking, but will smoke occasionally. - Ebola Screening: : No symptoms or risks identified at this time. Screenin:16 Abuse screen: Denies threats or abuse. Denies injuries from another. Nutritional aj1 screening: No deficits noted. Tuberculosis screening: No symptoms or risk factors identified. Fall Risk None identified. Assessment: 16:16 General: Appears in no apparent distress. uncomfortable, Behavior is calm, cooperative, aj1 appropriate for age. Pain: Complains of pain in face, left aspect of posterior pharynx and right aspect of posterior pharynx. Neuro: Level of Consciousness is awake, alert, obeys commands, Oriented to person, place, time, situation, Reports headache. Cardiovascular: Patient's skin is warm and dry. Respiratory: Airway is patent Respiratory effort is even, unlabored, Respiratory pattern is regular, symmetrical. GI: No signs and/or symptoms were reported involving the gastrointestinal system. : No signs and/or symptoms were reported regarding the genitourinary system. EENT: Throat is reddened bilaterally. Derm: No signs and/or symptoms reported regarding the dermatologic system. Skin is pink, warm \T\ dry. normal. Musculoskeletal: No signs and/or symptoms reported regarding the musculoskeletal system. Circulation, motion, and sensation intact. Vital Signs: 14:40 BP 122 / 74; Pulse 71; Resp 16; Temp 97.6; Pulse Ox 100% on R/A; Weight 97.52 kg; hb Height 5 ft. 4 in. (162.56 cm); Pain 6/10; 14:40 Body Mass Index 36.90 (97.52 kg, 162.56 cm) hb ED Course: 14:26 Patient arrived in ED. rg4 14:36 Ana Paula Stout [facility]-C [facility]. snw 14:36 Chase Howell MD is Attending Physician. snw 14:39 Triage completed. hb 14:40 Arm band placed on. hb 15:56 Libby Ramsey, RN is Primary Nurse. aj1 16:16 Patient has correct armband on for positive identification. Bed in low position. Call aj1 light in reach. Side rails up X 1. 16:16 No provider procedures requiring assistance completed. Patient did not have IV access aj1 during this emergency room visit. Administered Medications: 16:15 Drug: Decadron 8 mg Route: PO; aj1 16:15 Follow up: Response: No adverse reaction aj1 16:15 Drug: ProTONIX 40 mg Route: PO; aj1 16:15 Follow up: Response: No adverse reaction aj1 Outcome: 15:41 Discharge ordered by . snw 16:16 Discharged to home ambulatory. aj1 16:16 Condition: good 16:16 Discharge instructions given to patient, Instructed on discharge instructions, follow up and referral plans. medication usage, Demonstrated understanding of instructions, follow-up care, medications, Prescriptions given X 1. 16:17 Patient left the ED. aj1 Signatures: Libby Ramsey, RN RN aj1 Ana Paula Stout, MATERIALS ENGINEER-C MATERIALS ENGINEER-Csnw Elizabeth Owens, RN RN Magalis Ames 4
[2019-05-25] MEDS ORDERED: dexAMETHasone 4 MG TAB ONE (16:02)
[2019-05-25] MEDS ORDERED: PANTOPRAZOLE 40MG TABLET PO ONE (16:02)
[2019-05-25 17:13] VITALS: BP 122/74; TEMP 97.6; O2SAT 100
== END 2019-05-25 16:17 | disposition home or self-care (01) ==
LOC: ER 14:24
DX: J02.9 Acute pharyngitis, unspecified (principal); Z72.0 Tobacco use
CPT/HCPCS: 87070; 87081; 87804 ×2; 99283; J8540

== ENCOUNTER 2020-01-25 01:57 | Emergency (ER) | payer OTHER ==
[2020-01-25] MEDS ORDERED: NA CHLORIDE 0.9% 1,000 ML ONE (03:02)
[2020-01-25] MEDS ORDERED: ONDANSETRON 4 MG/2 ML VIAL ONE (03:02)
[2020-01-25] MEDS ORDERED: MORPHINE 4 MG/ML SYR ONE (03:02)
[2020-01-25 03:10] LABS: Urine Blood NEGATIVE (NEG); Urine Glucose NEGATIVE (NEG); Urine Protein NEGATIVE (NEG)
[2020-01-25 03:14] LABS: Absolute Lymphocytes (CBC) 1.6 K/uL (0.7-4.9); Basophils % 0.6 % (0-1.3); Hematocrit 41.5 % (36.0-45.0); Lymphocytes % 29.3 % (15.3-44.8); MPV 9.7 fL (7.6-11.3); RBC Red Blood Cell Count 5.03 M/uL (3.86-4.86)
[2020-01-25 03:33] LABS: Albumin 4.2 g/dL (3.4-5.0); Bilirubin Direct 0.1 mg/dL (0-0.2); Bilirubin Total 0.4 mg/dL (0.2-1.0); Potassium 3.6 mmol/L (3.5-5.1); Protein, Total 7.6 g/dL (6.4-8.2)
[2020-01-25] MEDS ORDERED: CEFTRIAXONE/SWI 1gm 1 GM/10 ML SYR ONE (05:08)
--- NOTE | 2020-01-25 05:27 | ER ---
Nurse's Notes [facility] Name: Catherine Carlos Age: 24 yrs Sex: Female : 1995 Arrival Date: 01/25/2020 Time: 02:01 Bed 18 Private MD: Diagnosis: Abdominal tenderness;Diverticular disease of intestine-diverticulosis Presentation: 01/24 02:12 Chief complaint: Patient states: RUQ pain that started tonight, states Hx of gall wh bladder pain before. Denies any associated symptoms. Coronavirus screen: Client denies travel out of the [place] in the last 14 days. At this time, the client does not indicate any symptoms associated with coronavirus-19. Ebola Screen: Patient negative for fever greater than or equal to 101.5 degrees Fahrenheit, and additional compatible Ebola Virus Disease symptoms Patient denies exposure to infectious person. Initial Sepsis Screen: Does the patient meet any 2 criteria? No. Patient's initial sepsis screen is negative. Does the patient have a suspected source of infection? Yes: Acute abdominal pain. Risk Assessment: Do you want to hurt yourself or someone else? Patient reports no desire to harm self or others. Onset of symptoms was January 25, 2020. 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 - Social history:: Smoking status: Patient uses alcohol, but reports only rare drinking. Patient/guardian denies using. - Family history:: not pertinent. Screenin:15 Abuse screen: Denies threats or abuse. Denies injuries from another. Nutritional screening: No deficits noted. Tuberculosis screening: No symptoms or risk factors identified. Fall Risk None identified. Assessment: 02:15 General: Appears in no apparent distress. uncomfortable, Behavior is calm, cooperative, wh appropriate for age. Pain: Complains of pain in right upper quadrant Pain does not radiate. Pain currently is 7 out of 10 on a pain scale. Quality of pain is described as dull, Pain began 4 hours ago. Neuro: Level of Consciousness is awake, alert, obeys commands, Oriented to person, place, time, situation, Appropriate for age. Cardiovascular: Heart tones S1 S2. Respiratory: Airway is patent Respiratory effort is even, unlabored, Respiratory pattern is regular, symmetrical, Breath sounds are clear bilaterally. GI: Abdomen is flat, non-distended, Bowel sounds present X 4 quads. Abd is soft and non tender Abdomen is tender to palpation in right upper quadrant. : No signs and/or symptoms were reported regarding the genitourinary system. EENT: No signs and/or symptoms were reported regarding the EENT system. Derm: Skin is intact, is healthy with good turgor, Skin is pink, warm \T\ dry. normal. Musculoskeletal: Circulation, motion, and sensation intact. 03:16 Reassessment: Patient appears in no apparent distress at this time. No changes from previously documented assessment. Patient and/or family updated on plan of care and expected duration. Pain level reassessed. Patient is alert, oriented x 3, equal unlabored respirations, skin warm/dry/pink. 04:17 Reassessment: Patient appears in no apparent distress at this time. Patient and/or family updated on plan of care and expected duration. Pain level reassessed. Patient is alert, oriented x 3, equal unlabored respirations, skin warm/dry/pink. Patient states feeling better. Patient states symptoms have improved. 05:30 Reassessment: Patient appears in no apparent distress at this time. Patient and/or family updated on plan of care and expected duration. Pain level reassessed. Patient is alert, oriented x 3, equal unlabored respirations, skin warm/dry/pink. Vital Signs: 02:11 BP 122 / 79; Pulse 82; Resp 18; Temp 98.2(O); Pulse Ox 98% on R/A; oe 02:12 BP 122 / 79; Pulse 89; Resp 18; Temp 98.2; Pulse Ox 98% ; Weight 97.52 kg; Height 5 ft. wh 4 in. (162.56 cm); Pain 7/10; 03:00 BP 114 / 73; Pulse 76; Resp 18; Pulse Ox 97% on R/A; wh 04:00 BP 99 / 58; Pulse 84; Resp 18; Pulse Ox 98% on R/A; Pain 2/10; wh 05:30 BP 108 / 68; Pulse 74; Resp 18; Pulse Ox 98% on R/A; wh 02:12 Body Mass Index 36.90 (97.52 kg, 162.56 cm) ED Course: 02:01 Patient arrived in ED. am2 02:03 Tamara Lennon is Primary Nurse. 02:04 Chase Howell MD is Attending Physician. park 02:14 Triage completed. 02:16 Arm band placed on right wrist. 02:16 Patient has correct armband on for positive identification. Bed in low position. Call light in reach. Side rails up X 1. monitoring analyst on. Pulse ox on. 02:45 Missed attempt(s): 20 gauge Bleeding controlled, band aid applied, catheter tip intact. oe 02:53 Inserted saline lock: 20 gauge in left antecubital area, using aseptic technique. Blood oe collected. 04:39 CT Abd/Pelvis - IV Contrast Only In Process Unspecified. EDMS 05:25 Joseluis Soares MD is Referral Physician. park 05:35 No provider procedures requiring assistance completed. IV discontinued, intact, bleeding controlled, No redness/swelling at site. Administered Medications: 02:51 Drug: NS 0.9% 1000 ml Route: IV; Rate: 1 bolus; Site: left antecubital; 05:37 Follow up: Response: No adverse reaction; IV Status: Completed infusion 02:53 Drug: morphine 2 mg {Note: rass 0.} Route: IVP; Site: left antecubital; 04:22 Follow up: Response: No adverse reaction; Pain is decreased; RASS: Alert and Calm (0) 02:55 Drug: Zofran (Ondansetron) 4 mg Route: IVP; Site: left antecubital; 04:22 Follow up: Response: No adverse reaction; Nausea is decreased 05:01 Drug: Rocephin 1 grams Route: IV; Rate: per protocol; Site: left antecubital; 05:37 Follow up: Response: No adverse reaction; IV Status: Completed infusion Outcome: 05:26 Discharge ordered by . park 05:35 Discharged to home ambulatory. 05:35 Condition: stable 05:35 Discharge instructions given to patient, Instructed on discharge instructions, follow up and referral plans. medication usage, POC Demonstrated understanding of instructions, follow-up care, medications, POC Prescriptions given X 3. 05:36 Patient left the ED. Signatures: Dispatcher [employer] EDChase Gooden MD MD cha Espinosa, Orlando oe Moreno, Amanda am2 Habalo, Winsy
--- NOTE | 2020-01-25 05:27 | EDPHYS ---
Physician Documentation [facility] Name: Catherine Carlos Age: 24 yrs Sex: Female : 1995 Arrival Date: 01/25/2020 Time: 02:01 Bed 18 Private MD: ED Physician Chase Howell HPI: 01/24 02:21 This 24 yrs old Female presents to ER via Ambulatory with complaints of park Abdominal Pain - ruq. 02:21 The patient presents with abdominal pain in the upper abdomen, in the right upper park quadrant. Onset: The symptoms/episode began/occurred 1 day(s) ago. The symptoms do not radiate. Associated signs and symptoms: none. The symptoms are described as constant, crampy. Modifying factors: The symptoms are alleviated by nothing, the symptoms are aggravated by nothing. Severity of pain: At its worst the pain was mild in the emergency department the pain is unchanged. The patient has not experienced similar symptoms in the past. 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 - Social history:: Smoking status: Patient uses alcohol, but reports only rare drinking. Patient/guardian denies using. - Family history:: not pertinent. ROS: 02:22 Constitutional: Negative for fever, chills, and weight loss, Eyes: Negative for injury, park pain, redness, and discharge, ENT: Negative for injury, pain, and discharge, Neck: Negative for injury, pain, and swelling, Cardiovascular: Negative for chest pain, palpitations, and edema, Respiratory: Negative for shortness of breath, cough, wheezing, and pleuritic chest pain, Back: Negative for injury and pain, : Negative for injury, bleeding, discharge, and swelling, MS/Extremity: Negative for injury and deformity, Skin: Negative for injury, rash, and discoloration, Neuro: Negative for headache, weakness, numbness, tingling, and seizure, Psych: Negative for depression, anxiety, suicide ideation, homicidal ideation, and hallucinations, Allergy/Immunology: Negative for hives, rash, and allergies, Endocrine: Negative for neck swelling, polydipsia, polyuria, polyphagia, and marked weight changes, Hematologic/Lymphatic: Negative for swollen nodes, abnormal bleeding, and unusual bruising. 02:22 Abdomen/GI: Positive for abdominal pain, of the epigastric area and right upper quadrant. Exam: 02:22 Constitutional: This is a well developed, well nourished patient who is awake, alert, park and in no acute distress. Head/Face: Normocephalic, atraumatic. Eyes: Pupils equal round and reactive to light, extra-ocular motions intact. Lids and lashes normal. Conjunctiva and sclera are non-icteric and not injected. Cornea within normal limits. Periorbital areas with no swelling, redness, or edema. ENT: Nares patent. No nasal discharge, no septal abnormalities noted. Tympanic membranes are normal and external auditory canals are clear. Oropharynx with no redness, swelling, or masses, exudates, or evidence of obstruction, uvula midline. Mucous membranes moist. Neck: Trachea midline, no thyromegaly or masses palpated, and no cervical lymphadenopathy. Supple, full range of motion without nuchal rigidity, or vertebral point tenderness. No Meningismus. Chest/axilla: Normal chest wall appearance and motion. Nontender with no deformity. No lesions are appreciated. Cardiovascular: Regular rate and rhythm with a normal S1 and S2. No gallops, murmurs, or rubs. Normal PMI, no JVD. No pulse deficits. Respiratory: Lungs have equal breath sounds bilaterally, clear to auscultation and percussion. No rales, rhonchi or wheezes noted. No increased work of breathing, no retractions or nasal flaring. Back: No spinal tenderness. No costovertebral tenderness. Full range of motion. Skin: Warm, dry with normal turgor. Normal color with no rashes, no lesions, and no evidence of cellulitis. MS/ Extremity: Pulses equal, no cyanosis. Neurovascular intact. Full, normal range of motion. Neuro: Awake and alert, GCS 15, oriented to person, place, time, and situation. Cranial nerves II-XII grossly intact. Motor strength 5/5 in all extremities. Sensory grossly intact. Cerebellar exam normal. Normal gait. Psych: Awake, alert, with orientation to person, place and time. Behavior, mood, and affect are within normal limits. 02:22 Abdomen/GI: Inspection: abdomen appears normal, Bowel sounds: normal, Palpation: nontender, mild abdominal tenderness, in the epigastric area and right upper quadrant, Liver: no appreciated palpable abnormalities, Hernia: not appreciated. Vital Signs: 02:11 BP 122 / 79; Pulse 82; Resp 18; Temp 98.2(O); Pulse Ox 98% on R/A; oe 02:12 BP 122 / 79; Pulse 89; Resp 18; Temp 98.2; Pulse Ox 98% ; Weight 97.52 kg; Height 5 ft. wh 4 in. (162.56 cm); Pain 7/10; 03:00 BP 114 / 73; Pulse 76; Resp 18; Pulse Ox 97% on R/A; wh 04:00 BP 99 / 58; Pulse 84; Resp 18; Pulse Ox 98% on R/A; Pain 2/10; wh 05:30 BP 108 / 68; Pulse 74; Resp 18; Pulse Ox 98% on R/A; wh 02:12 Body Mass Index 36.90 (97.52 kg, 162.56 cm) MDM: 02:[address] [facility] 02:22 Data reviewed: vital signs, nurses notes, lab test result(s), radiologic studies, CT [facility] scan. 01/24 02:20 Order name: Basic Metabolic Panel; Complete Time: 04:07 [facility] 01/24 02:20 Order name: CBC with Diff; Complete Time: 03:28 [facility] 01/24 02:20 Order name: Hepatic Function; Complete Time: 04:07 [facility] 01/24 02:20 Order name: Lipase; Complete Time: 04:07 [facility] 01/24 02:20 Order name: Urine Culture [facility] 01/24 03:05 Order name: Urine Dipstick--Ancillary (enter results); Complete Time: 03:28 [facility] 01/24 02:20 Order name: IV Saline Lock; Complete Time: 02:56 [facility] 01/24 02:20 Order name: Labs collected and sent; Complete Time: 02:56 [facility] 01/24 02:20 Order name: CT Abd/Pelvis - IV Contrast Only [facility] 01/24 03:05 Order name: Urine --Ancillary (enter results); Complete Time: 03:28 [facility] 01/24 02:20 Order name: Urine Dipstick-Ancillary (obtain specimen); Complete Time: 02:56 [facility] 01/24 02:20 Order name: Urine Test (obtain specimen); Complete Time: 02:55 [facility] Administered Medications: 02:51 Drug: NS 0.9% 1000 ml Route: IV; Rate: 1 bolus; Site: left antecubital; 05:37 Follow up: Response: No adverse reaction; IV Status: Completed infusion 02:53 Drug: morphine 2 mg {Note: rass 0.} Route: IVP; Site: left antecubital; 04:22 Follow up: Response: No adverse reaction; Pain is decreased; RASS: Alert and Calm (0) 02:55 Drug: Zofran (Ondansetron) 4 mg Route: IVP; Site: left antecubital; 04:22 Follow up: Response: No adverse reaction; Nausea is decreased 05:01 Drug: Rocephin 1 grams Route: IV; Rate: per protocol; Site: left antecubital; 05:37 Follow up: Response: No adverse reaction; IV Status: Completed infusion Disposition: 01/25/20 05:26 Discharged to Home. Impression: Abdominal tenderness, Diverticular disease of intestine - diverticulosis. - Condition is Stable. - Discharge Instructions: Abdominal Pain, Adult, Biliary Colic, Adult, Abdominal Pain, Adult, [id number]. - Prescriptions for Bentyl 20 mg Oral Tablet - take 1 tablet by ORAL route every 6 hours As needed; 20 tablet. Pepcid 20 mg Oral Tablet - take 1 tablet by ORAL route every 12 hours for 10 days; 20 tablet. Zofran 4 mg Oral Tablet - take 1 tablet by ORAL route every 12 hours As needed; 20 tablet. - Medication Reconciliation Form, Thank You Letter, Antibiotic Education, Prescription Opioid Use form. - Follow up: Private Physician; When: 2 - 3 days; Reason: Recheck today's complaints, Continuance of care, Re-evaluation by your physician. Follow up: Joseluis Soares MD; When: 2 - 3 days; Reason: Recheck today's complaints, Continuance of care, Re-evaluation by your physician. - Problem is new. - Symptoms have improved. Signatures: Dispatcher [employer] Chase Mckeon MD MD cha Habalo, Winsy Corrections: (The following items were deleted from the chart) 05:36 05:26 01/25/2020 05:26 Discharged to Home. Impression: Abdominal tenderness; wh Diverticular disease of intestine - diverticulosis. Condition is Stable. Forms are Medication Reconciliation Form, Thank You Letter, Antibiotic Education, Prescription Opioid Use. Follow up: Private Physician; When: 2 - 3 days; Reason: Recheck today's complaints, Continuance of care, Re-evaluation by your physician. Follow up: Dr. Joseluis Soares; When: 2 - 3 days; Reason: Recheck today's complaints, Continuance of care, Re-evaluation by your physician. Problem is new. Symptoms have improved. park
[2020-01-25 05:41] VITALS: TEMP 98.2
[2020-01-25 05:45] VITALS: O2SAT 98
[2020-01-25 05:47] VITALS: BP 108/68
--- NOTE | 2020-01-28 12:24 | RAD REPORT ---
EXAM DESCRIPTION: CT - Abdomen Pelvis W Contrast - 01/25/2020 6:47 am CLINICAL HISTORY: Right upper quadrant pain. COMPARISON: None. TECHNIQUE: Axial CT imaging of the abdomen and pelvis performed with intravenous contrast. Reformatt ed coronal and sagittal images reviewed. A dose reduction technique was utilized with automated exposure control according to patient size. FINDINGS: Clear lung bases. Heart is normal in size. Normal liver, gallbladder, pancreas, adrenal glands, and kidneys. Spleen is mildly enlarged, 14.6 cm. Normal caliber abdominal aorta. There is a circumaortic left renal vein. Normal inferior vena cava. Mesenteric vessels appear normal. Unremarkable stomach. The small bowel loops appear normal. Appendix is not seen. Minimal diverticulos is without diverticulitis. No ascites or free air. No mesenteric adenopathy. Unremarkable bladder and uterus. There are follicular changes within the ovaries. No pelvic free flui d or lymphadenopathy. Normal lumbar lordosis. No subluxation. Intact bony pelvis. Normal hips. IMPRESSION: 1. No acute finding within the abdomen or pelvis. 2. Mild splenomegaly. 3. Minimal diverticulosis without diverticulitis. Electronically signed by: Anika Ramos DO 01/25/2020 5:20 AM CDT Due to temporary technical issues with the PACS/Fluency reporting system, reports are being signed by the in house radiologist without review as a courtesy to ensure prompt reporting. The interpreting r adiologist is fully responsible for the content of the report.
--- OUTSIDE RECORDS SUMMARY | 2020-01-29 22:16 | XMS REPORT | Continuity of Care Document ---
:1995 Author Organization [facility] t Address [address] [place] [address] [address] [place] [address] Care Team Providers Name Role Phone Unavailable Unavailable Unavailable Problems This patient has no known problems. Allergies, Adverse Reactions, Alerts This patient has no known allergies or adverse reactions. Medications This patient has no known medications. Procedures This patient has no known procedures. Results This patient has no known results.
== END 2020-01-25 05:36 | disposition home or self-care (01) ==
LOC: ER 01:57
DX: K57.30 Diverticulosis of large intestine without perforation or abscess without bleeding (principal)
CPT/HCPCS: 96365; 96361; 87088; 85025; 87086; 80048; 36415; 81025; 80076; 81003; 83690; 74177; 96375; 99284; Q9967; J0696; J7030; J2405

== ENCOUNTER 2020-09-22 17:57 | Emergency (ER) | payer OTHER ==
--- OUTSIDE RECORDS SUMMARY | 2020-09-22 18:00 | XMS REPORT | Continuity of Care Document ---
:1995 Author Organization [facility] t Address [address] [place] [address] Care Team Providers Name Role Phone Joseline Blanco PA-C Attending Clinician Problems This patient has no known problems. Allergies, Adverse Reactions, Alerts This patient has no known allergies or adverse reactions. Medications This patient has no known medications. Procedures This patient has no known procedures. Encounters Start End Encounter Admission Attending Care Care Encounter Source Date/Time Date/Time Type Type Clinicians Facility Department ID 2020-08-18 2020-08-18 Office HIMANSHU Blanco [id number] 10:23:22 11:05:07 Visit Joseline Leigh [id number] [id number] [address] [facility] Results This patient has no known results.
--- NOTE | 2020-09-22 19:17 | ER ---
Nurse's Notes [facility] Name: Catherine Norris Age: 25 yrs Sex: Female : 1995 Arrival Date: 09/22/2020 Time: 18:02 Bed Waiting Private MD: Diagnosis: ED Course: 09/22 18:02 Patient arrived in ED. mr 19:16 Patient's name was called from ER lobby. No response. Unable to locate patient. Will jl7 disposition as left without being seen by a provider. Administered Medications: No medications were administered Outcome: 19:16 Patient left the ED. jl7 Signatures: Patricia Silva Jahala RN RN jl7
== END 2020-09-22 19:16 | disposition left against medical advice (07) ==
LOC: ER 17:57
DX: R69 Illness, unspecified (principal); Z53.21 Procedure and treatment not carried out due to patient leaving prior to being seen by health care provider